=== PATIENT | male | born 1995 | race Asian ===

== ENCOUNTER 2018-12-08 10:41 | Day surgery (SDC) | payer OTHER ==
[2018-12-08 11:44] VITALS: BMI 31.3
[2018-12-08 13:15] VITALS: TEMP 97.6
[2018-12-08 15:08] VITALS: BP 110/67; PULSE 80
--- NOTE | 2018-12-12 15:42 | PATH ---
Surgical Pathology Report Patient Name: JUAN CARLOS MARTINO [facility]. Rec. #: [id number] /Age/Gender: 1995 (Age: 23) / M Account: [id number] Location: U-ENDOSCOPY Taken: 12/08/2018 Received: 12/11/2018 Reported: 12/12/2018 Physicians: Alphonso Porter M.D. Specimen(s) Received A: BX 2ND PORTION DUODENUM AND BULB B: BX ANTRUM C: BX HEPATIC FLEXURE POLYP D: BX ILEUM E: BX CECUM F: BX SIGMOID Clinical History Abdominal pain, chronic diarrhea Postoperative diagnosis: Antral gastritis, rule out microscopic colitis, polyp Final Diagnosis A. DUODENUM, SECOND PORTION AND BULB, BIOPSY: DUODENAL MUCOSA WITH MILD CHRONIC DUODENITIS AND PRESERVED VILLOUS ARCHITECTURE. B. STOMACH, ANTRUM, BIOPSY: GASTRIC ANTRAL MUCOSA WITH MILD CHRONIC GASTRITIS. IMMUNOHISTOCHEMICAL STAIN FOR H. PYLORI IS NEGATIVE. C. COLON, HEPATIC FLEXURE, POLYP, POLYPECTOMY: HYPERPLASTIC POLYP. D. ILEUM, BIOPSY: ILEAL MUCOSA WITHOUT SIGNIFICANT PATHOLOGIC FINDINGS. E. CECUM, BIOPSY: COLONIC MUCOSA WITHOUT SIGNIFICANT PATHOLOGIC FINDINGS. F. SIGMOID COLON, BIOPSY: COLONIC MUCOSA WITH PROMINENT LYMPHOID AGGREGATE. Electronically Signed Jennifer Scott M.D. Gross Description A. Received in formalin, labeled "second portion of duodenum and bulb" are 6 mccarthy, irregular portions of soft tissue ranging from 0.3-0.4 cm. in greatest dimension. The specimens are submitted in toto in one cassette. B. Received in formalin, labeled "antrum" are 4 mccarthy, irregular portions of soft tissue ranging from 0.2-0.5 cm. in greatest dimension. The specimens are submitted in toto in one cassette. C. Received in formalin, labeled "polyp hepatic flexure" are 2 mccarthy, irregular portions of soft tissue measuring 0.4 and 0.5 cm. in greatest dimension. The specimens are submitted in toto in one cassette. D. Received in formalin, labeled "ileum" are 2 mccarthy, irregular portions of soft tissue measuring 0.5 and 0.7 cm. in greatest dimension. The specimens are submitted in toto in one cassette. E. Received in formalin, labeled "cecum" are 3 mccarthy, irregular portions of soft tissue ranging from 0.2-0.5 cm. in greatest dimension. The specimens are submitted in toto in one cassette. F. Received in formalin, labeled "sigmoid colon" are 2 mccarthy, irregular portions of soft tissue measuring 0.2 and 0.8 cm. in greatest dimension. The specimens are submitted in toto in one cassette. 12/11/201812/11/2018
== END 2018-12-08 14:00 | disposition home or self-care (01) ==
LOC: JASU-ENDO 10:41
PROVIDERS: ATTEND Internal Medicine Gastroenterology
PROC: 0DBE8ZX Excision of Large Intestine, Via Natural or Artificial Opening Endoscopic, Diagnostic (ICD-10-PCS; 2018-12-08)
PROC: 0DB68ZX Excision of Stomach, Via Natural or Artificial Opening Endoscopic, Diagnostic (ICD-10-PCS; 2018-12-08)
PROC: 0DBL8ZX Excision of Transverse Colon, Via Natural or Artificial Opening Endoscopic, Diagnostic (ICD-10-PCS; principal; 2018-12-08 11:45)
DX: K52.9 Noninfective gastroenteritis and colitis, unspecified (principal); D12.3 Benign neoplasm of transverse colon; K63.5 Polyp of colon; K64.8 Other hemorrhoids
CPT/HCPCS: 88305-TC; 88342-TC